=== PATIENT | female | born 1955 | race Asian ===

== ENCOUNTER 2020-06-05 05:41 | Inpatient (IN) | payer OTHER, SELFPAY ==
[~2020-06-05] VITALS: Ht 157.5 cm; Wt 74.4 kg
[2020-06-05 05:50] VITALS: BP_SYST 109
[2020-06-05] MEDS ORDERED: NACL 0.9% 1,000 ML IV ONE (06:14)
[2020-06-05 06:33] LABS: BILIRUBIN,URINE NEGATIVE (NEGATIVE); BLOOD, URINE 1+ (NEGATIVE); CLARITY/URINE CLEAR (CLEAR); COLOR,URINE YELLOW (YELLOW); GLUCOSE,URINE NEGATIVE (NEGATIVE); KETONES,URINE TRACE (NEGATIVE); LEUKOCYTE ESTERASE ,URINE NEGATIVE (NEGATIVE); NITRITE, URINE NEGATIVE (NEGATIVE); PROTEIN URINE NEGATIVE (NEGATIVE); UROBILINOGEN,URINE 0.2 (0.2-1.0)
[2020-06-05 06:54] LABS: BASOPHILS % (AUTO) 0.2 % (0.0-2.0); HEMATOCRIT 39.3 % (36-48); HEMOGLOBIN 12.4 g/dL (12.0-16.0); LYMPHOCYTES # (AUTO) 0.9 K/uL (1.0-5.5); LYMPHOCYTES % (AUTO) 16.8 % (20.5-51.5); MEAN CORPUSCULAR HEMOGLOBIN 24 pg (27-31); MEAN CORPUSCULAR HGB CONC 32 % (32-36); MEAN CORPUSCULAR VOLUME 77 fL (79.0-98.0); MONOCYTES # (AUTO) 0.5 K/uL (0.0-1.0); MONOCYTES % (AUTO) 8.8 % (1.7-9.3); NEUTROPHILS # (AUTO) 3.9 K/uL (1.8-7.7); NEUTROPHILS % (AUTO) 74.2 % (40.0-70.0); PLATELET COUNT (AUTO) 153 K/uL (130-430); RED BLOOD CELL COUNT(AUTO) 5.13 MIL/uL (4.2-6.2); RED CELL DISTRIBUTION WIDTH 15.8 % (9.0-15.0); WHITE BLOOD COUNT (AUTO) 5.3 K/uL (4.8-10.8)
[2020-06-05 06:54] LABS: BACTERIA,URINE FEW /HPF (None Seen); WBC,URINE 0-3 /HPF (0-3)
[2020-06-05 06:59] LABS: CREATININE 0.71 mg/dL (0.55-1.30); POTASSIUM 3.9 mmol/L (3.5-5.1)
[2020-06-05 07:13] LABS: TOTAL BILIRUBIN 0.3 mg/dL (0.0-1.0)
[2020-06-05 07:41] LABS: C-REACTIVE PROTEIN QUANT 18.2 mg/dL (0-0.5)
[2020-06-05 07:42] LABS: INR 1.1 (0.8-1.2)
[2020-06-05] MEDS ORDERED: MORPHINE 2 MG/ML INJ. SYRINGE IVP PRN (07:45)
[2020-06-05] MEDS ORDERED: AZITHROMYCIN 500 MG in NS 250 ML IV ONE (07:45)
[2020-06-05] MEDS ORDERED: HYDROcodone/ACETAMIN 5-325 MG TAB (NORCO/ VICODIN) PO PRN (07:45)
[2020-06-05] MEDS ORDERED: AZITHROMYCIN 250 MG TABLET PO ONE (08:00)
[2020-06-05 08:14] LABS: FIBRINOGEN 378 mg/dL (200-400)
[2020-06-05] MEDS ORDERED: ALBUTEROL SULFATE 0.083% 2.5 MG/3 ML VIAL.NEB INH PRN (08:15)
[2020-06-05] MEDS ORDERED: ALBUTEROL MDI INHALATION 8 GM INH INH PRN (08:15)
[2020-06-05] MEDS: NACL 0.9% 1,000 ML IV SCH (08:39)
[2020-06-05] MEDS: cefTRIAXone 1 GM in D5W 50 ML IV SCH (08:41)
[2020-06-05] MEDS ORDERED: AZITHROMYCIN 250 MG TABLET ONE (08:57)
[2020-06-05] MEDS ORDERED: MAGNESIUM OXIDE 400 MG TABLET PO PRN (09:00)
[2020-06-05] MEDS ORDERED: ONDANSETRON HCL 4 MG/2 ML VIAL IVP PRN (09:00)
[2020-06-05] MEDS: ASCORBIC ACID 500 MG TABLET PO SCH (10:12)
[2020-06-05] MEDS: CHOLECALCIFEROL (VITAMIN D3) 2,000 UNIT TABLET PO SCH (10:13)
[2020-06-05] MEDS: ENOXAPARIN SODIUM 40 MG/0.4 ML SYRINGE SUBCUT SCH (10:14)
[2020-06-05 10:30] VITALS: BP_SYST 117
[2020-06-05 12:00] VITALS: BP_SYST 113
[2020-06-05] MEDS: metroNIDAZOLE 500 MG TABLET PO SCH ×2 (14:00→22:00)
[2020-06-05 17:50] VITALS: BP_SYST 113
[2020-06-05 20:00] VITALS: BP_SYST 104
[2020-06-06] VITALS: BP_SYST 111
[2020-06-06] MEDS: NACL 0.9% 1,000 ML IV SCH (00:26)
[2020-06-06] MEDS: metroNIDAZOLE 500 MG TABLET PO SCH ×3 (07:02→22:01)
[2020-06-06 08:00] VITALS: BP_SYST 118
[2020-06-06] MEDS: DECADRON 4 MG TABLET PO SCH (09:00)
[2020-06-06] MEDS: AZITHROMYCIN 250 MG TABLET PO SCH (09:00)
[2020-06-06] MEDS: ASCORBIC ACID 500 MG TABLET PO SCH (09:00)
[2020-06-06] MEDS: CHOLECALCIFEROL (VITAMIN D3) 2,000 UNIT TABLET PO SCH (09:00)
[2020-06-06] MEDS: cefTRIAXone 1 GM in D5W 50 ML IV SCH (09:00)
[2020-06-06] MEDS: ENOXAPARIN SODIUM 40 MG/0.4 ML SYRINGE SUBCUT SCH (09:00)
[2020-06-06 10:31] LABS: BASOPHILS % (AUTO) 0.1 % (0.0-2.0); HEMATOCRIT 39.1 % (36-48); HEMOGLOBIN 12.4 g/dL (12.0-16.0); LYMPHOCYTES # (AUTO) 0.8 K/uL (1.0-5.5); LYMPHOCYTES % (AUTO) 13.1 % (20.5-51.5); MEAN CORPUSCULAR HEMOGLOBIN 24 pg (27-31); MEAN CORPUSCULAR HGB CONC 32 % (32-36); MEAN CORPUSCULAR VOLUME 76 fL (79.0-98.0); MONOCYTES # (AUTO) 0.5 K/uL (0.0-1.0); NEUTROPHILS # (AUTO) 4.5 K/uL (1.8-7.7); NEUTROPHILS % (AUTO) 77.8 % (40.0-70.0); PLATELET COUNT (AUTO) 158 K/uL (130-430); RED BLOOD CELL COUNT(AUTO) 5.14 MIL/uL (4.2-6.2); RED CELL DISTRIBUTION WIDTH 15.8 % (9.0-15.0); WHITE BLOOD COUNT (AUTO) 5.8 K/uL (4.8-10.8)
[2020-06-06 10:58] LABS: ALBUMIN 2.7 g/dL (3.4-4.8); CALCIUM 8.3 mg/dL (8.4-11.0); CREATININE 0.66 mg/dL (0.55-1.30); POTASSIUM 3.7 mmol/L (3.5-5.1); TOTAL BILIRUBIN 0.2 mg/dL (0.0-1.0)
[2020-06-06 11:33] LABS: C-REACTIVE PROTEIN QUANT 22.5 mg/dL (0-0.5)
[2020-06-06 12:00] VITALS: BP_SYST 109
[2020-06-06 16:00] VITALS: BP_SYST 109
[2020-06-06 20:00] VITALS: BP_SYST 107
[2020-06-06] MEDS: ACETAMINOPHEN 325 MG TABLET PO PRN (22:01)
[2020-06-07] VITALS: BP_SYST 103
[2020-06-07] MEDS: metroNIDAZOLE 500 MG TABLET PO SCH ×2 (06:02→13:38)
[2020-06-07] MEDS: NACL 0.9% 1,000 ML IV SCH ×2 (07:42→20:59)
[2020-06-07 08:45] VITALS: BP_SYST 116
[2020-06-07] MEDS: ENOXAPARIN SODIUM 40 MG/0.4 ML SYRINGE SUBCUT SCH (09:12)
[2020-06-07] MEDS: CHOLECALCIFEROL (VITAMIN D3) 2,000 UNIT TABLET PO SCH (09:12)
[2020-06-07] MEDS: ASCORBIC ACID 500 MG TABLET PO SCH (09:12)
[2020-06-07] MEDS: AZITHROMYCIN 250 MG TABLET PO SCH (09:13)
[2020-06-07] MEDS: DECADRON 4 MG TABLET PO SCH (09:13)
[2020-06-07] MEDS: cefTRIAXone 1 GM in D5W 50 ML IV SCH (09:14)
[2020-06-07] MEDS: ACETAMINOPHEN 325 MG TABLET PO PRN (09:30)
[2020-06-07 10:39] LABS: BASOPHILS % (AUTO) 0.2 % (0.0-2.0); HEMATOCRIT 38.1 % (36-48); HEMOGLOBIN 12.2 g/dL (12.0-16.0); LYMPHOCYTES # (AUTO) 0.7 K/uL (1.0-5.5); LYMPHOCYTES % (AUTO) 10.4 % (20.5-51.5); MEAN CORPUSCULAR HEMOGLOBIN 24 pg (27-31); MEAN CORPUSCULAR HGB CONC 32 % (32-36); MEAN CORPUSCULAR VOLUME 76 fL (79.0-98.0); MONOCYTES # (AUTO) 0.4 K/uL (0.0-1.0); MONOCYTES % (AUTO) 5.4 % (1.7-9.3); NEUTROPHILS # (AUTO) 5.9 K/uL (1.8-7.7); PLATELET COUNT (AUTO) 164 K/uL (130-430); RED BLOOD CELL COUNT(AUTO) 5.01 MIL/uL (4.2-6.2); RED CELL DISTRIBUTION WIDTH 15.5 % (9.0-15.0)
[2020-06-07 11:03] LABS: ALBUMIN 2.5 g/dL (3.4-4.8); CALCIUM 8.5 mg/dL (8.4-11.0); CREATININE 0.75 mg/dL (0.55-1.30); POTASSIUM 3.3 mmol/L (3.5-5.1); TOTAL BILIRUBIN 0.2 mg/dL (0.0-1.0)
[2020-06-07 11:35] VITALS: BP_SYST 105
[2020-06-07] MEDS ORDERED: PANTOPRAZOLE SODIUM 40 MG TAB PO ONE (12:00)
[2020-06-07] MEDS ORDERED: ENOXAPARIN SODIUM 80 MG/0.8 ML SYRINGE SUBCUT SCH (12:00)
[2020-06-07 16:41] VITALS: BP_SYST 108
[2020-06-07] MEDS ORDERED: IVERMECTIN 3 MG TABLET PO ONE (17:00)
[2020-06-07 20:00] VITALS: BP_SYST 110
[2020-06-07] MEDS: FAMOTIDINE PF 20 MG/2 ML VIAL IVP SCH (20:59)
[2020-06-07] MEDS: POTASSIUM CHLORIDE 20 MEQ TAB.PRT.SR PO PRN (20:59)
[2020-06-08] VITALS: BP_SYST 106
[2020-06-08] MEDS: NACL 0.9% 1,000 ML IV SCH (06:37)
[2020-06-08 07:08] LABS: BASOPHILS % (AUTO) 0.1 % (0.0-2.0); HEMATOCRIT 36.6 % (36-48); LYMPHOCYTES # (AUTO) 0.5 K/uL (1.0-5.5); LYMPHOCYTES % (AUTO) 18.6 % (20.5-51.5); MEAN CORPUSCULAR HEMOGLOBIN 25 pg (27-31); MEAN CORPUSCULAR HGB CONC 33 % (32-36); MEAN CORPUSCULAR VOLUME 75 fL (79.0-98.0); MONOCYTES # (AUTO) 0.3 K/uL (0.0-1.0); MONOCYTES % (AUTO) 12.6 % (1.7-9.3); NEUTROPHILS # (AUTO) 1.7 K/uL (1.8-7.7); NEUTROPHILS % (AUTO) 68.7 % (40.0-70.0); PLATELET COUNT (AUTO) 165 K/uL (130-430); RED BLOOD CELL COUNT(AUTO) 4.89 MIL/uL (4.2-6.2); RED CELL DISTRIBUTION WIDTH 15.4 % (9.0-15.0); WHITE BLOOD COUNT (AUTO) 2.5 K/uL (4.8-10.8)
[2020-06-08 07:55] LABS: ALBUMIN 2.3 g/dL (3.4-4.8); CALCIUM 8.4 mg/dL (8.4-11.0); CREATININE 0.81 mg/dL (0.55-1.30); POTASSIUM 3.7 mmol/L (3.5-5.1); TOTAL BILIRUBIN 0.2 mg/dL (0.0-1.0)
[2020-06-08 08:00] VITALS: BP_SYST 126
[2020-06-08] MEDS: DECADRON 4 MG TABLET PO SCH (09:00)
[2020-06-08] MEDS: FAMOTIDINE PF 20 MG/2 ML VIAL IVP SCH ×2 (09:00→22:18)
[2020-06-08] MEDS: ENOXAPARIN SODIUM 40 MG/0.4 ML SYRINGE SUBCUT SCH (09:00)
[2020-06-08] MEDS: cefTRIAXone 1 GM in D5W 50 ML IV SCH (09:00)
[2020-06-08] MEDS ORDERED: PANTOPRAZOLE SODIUM 40 MG TAB PO SCH (09:00)
[2020-06-08] MEDS: CHOLECALCIFEROL (VITAMIN D3) 2,000 UNIT TABLET PO SCH (09:00)
[2020-06-08] MEDS: ASCORBIC ACID 500 MG TABLET PO SCH (09:00)
[2020-06-08 09:32] LABS: C-REACTIVE PROTEIN QUANT 17.7 mg/dL (0-0.5)
[2020-06-08 11:37] VITALS: BP_SYST 126
[2020-06-08 12:00] VITALS: BP_SYST 108
[2020-06-08 16:09] VITALS: BP_SYST 120
[2020-06-08 20:00] VITALS: BP_SYST 107
[2020-06-08] MEDS: ACETAMINOPHEN 325 MG TABLET PO PRN (23:47)
[2020-06-09] VITALS: BP_SYST 131
[2020-06-09 08:00] VITALS: BP_SYST 106
[2020-06-09] MEDS: ENOXAPARIN SODIUM 40 MG/0.4 ML SYRINGE SUBCUT SCH (09:13)
[2020-06-09] MEDS: ASCORBIC ACID 500 MG TABLET PO SCH (09:13)
[2020-06-09] MEDS: cefTRIAXone 1 GM in D5W 50 ML IV SCH (09:13)
[2020-06-09] MEDS: CHOLECALCIFEROL (VITAMIN D3) 2,000 UNIT TABLET PO SCH (09:13)
[2020-06-09] MEDS: DECADRON 4 MG TABLET PO SCH (09:13)
[2020-06-09] MEDS: FAMOTIDINE PF 20 MG/2 ML VIAL IVP SCH ×2 (09:13→21:49)
[2020-06-09 10:06] LABS: BASOPHILS % (AUTO) 0.1 % (0.0-2.0); HEMATOCRIT 38.5 % (36-48); HEMOGLOBIN 12.5 g/dL (12.0-16.0); LYMPHOCYTES # (AUTO) 0.6 K/uL (1.0-5.5); LYMPHOCYTES % (AUTO) 8.9 % (20.5-51.5); MEAN CORPUSCULAR HEMOGLOBIN 25 pg (27-31); MEAN CORPUSCULAR HGB CONC 33 % (32-36); MEAN CORPUSCULAR VOLUME 76 fL (79.0-98.0); MONOCYTES # (AUTO) 0.5 K/uL (0.0-1.0); MONOCYTES % (AUTO) 6.7 % (1.7-9.3); NEUTROPHILS # (AUTO) 5.8 K/uL (1.8-7.7); NEUTROPHILS % (AUTO) 84.3 % (40.0-70.0); PLATELET COUNT (AUTO) 252 K/uL (130-430); RED BLOOD CELL COUNT(AUTO) 5.05 MIL/uL (4.2-6.2); RED CELL DISTRIBUTION WIDTH 15.7 % (9.0-15.0); WHITE BLOOD COUNT (AUTO) 6.9 K/uL (4.8-10.8)
[2020-06-09 10:17] LABS: ALBUMIN 2.5 g/dL (3.4-4.8); CALCIUM 8.8 mg/dL (8.4-11.0); CREATININE 0.78 mg/dL (0.55-1.30); POTASSIUM 3.2 mmol/L (3.5-5.1); TOTAL BILIRUBIN 0.2 mg/dL (0.0-1.0)
[2020-06-09] MEDS: POTASSIUM CHLORIDE 20 MEQ TAB.PRT.SR PO PRN (13:00)
[2020-06-09 13:15] VITALS: BP_SYST 112
[2020-06-09] MEDS ORDERED: KCL 40 mEq in 100 mL (PREMIX) 100 ML IV ONE (14:00)
[2020-06-09 16:01] VITALS: BP_SYST 107
[2020-06-09 20:00] VITALS: BP_SYST 109
[2020-06-09] MEDS: LOPERAMIDE HCL 2 MG CAPSULE PO PRN (21:50)
[2020-06-09] MEDS: ACETAMINOPHEN 325 MG TABLET PO PRN (22:36)
[2020-06-10 00:05] VITALS: BP_SYST 133
[2020-06-10] MEDS: LOPERAMIDE HCL 2 MG CAPSULE PO PRN (06:45)
[2020-06-10 08:00] VITALS: BP_SYST 105
[2020-06-10] MEDS ORDERED: DEXA6TAB5 PO (08:23)
[2020-06-10] MEDS ORDERED: APIX2.5T PO (08:23)
[2020-06-10] MEDS ORDERED: ZINC220T4 PO (08:23)
[2020-06-10] MEDS ORDERED: VITD2000 PO (08:23)
[2020-06-10] MEDS ORDERED: ASCO500C18 PO (08:23)
[2020-06-10] MEDS ORDERED: AZIT-62 PO (08:23)
[2020-06-10] MEDS ORDERED: AZITHROMYCIN 250 MG TABLET PO ONE (08:30)
[2020-06-10 08:55] LABS: EOSINOPHILS % (AUTO) 0.1 % (0.0-4.0); HEMATOCRIT 39.1 % (36-48); HEMOGLOBIN 12.6 g/dL (12.0-16.0); LYMPHOCYTES # (AUTO) 1.1 K/uL (1.0-5.5); MEAN CORPUSCULAR HEMOGLOBIN 24 pg (27-31); MEAN CORPUSCULAR HGB CONC 32 % (32-36); MEAN CORPUSCULAR VOLUME 76 fL (79.0-98.0); MONOCYTES % (AUTO) 8.9 % (1.7-9.3); PLATELET COUNT (AUTO) 261 K/uL (130-430); RED BLOOD CELL COUNT(AUTO) 5.17 MIL/uL (4.2-6.2); RED CELL DISTRIBUTION WIDTH 15.5 % (9.0-15.0); WHITE BLOOD COUNT (AUTO) 11.1 K/uL (4.8-10.8)
[2020-06-10] MEDS: CHOLECALCIFEROL (VITAMIN D3) 2,000 UNIT TABLET PO SCH (09:15)
[2020-06-10] MEDS: cefTRIAXone 1 GM in D5W 50 ML IV SCH (09:15)
[2020-06-10] MEDS: ASCORBIC ACID 500 MG TABLET PO SCH (09:15)
[2020-06-10] MEDS: FAMOTIDINE PF 20 MG/2 ML VIAL IVP SCH (09:15)
[2020-06-10] MEDS: DECADRON 4 MG TABLET PO SCH (09:15)
[2020-06-10] MEDS: ENOXAPARIN SODIUM 40 MG/0.4 ML SYRINGE SUBCUT SCH (09:16)
[2020-06-10 09:27] LABS: ALBUMIN 2.7 g/dL (3.4-4.8); CALCIUM 9.1 mg/dL (8.4-11.0); CREATININE 0.84 mg/dL (0.55-1.30); POTASSIUM 3.5 mmol/L (3.5-5.1); TOTAL BILIRUBIN 0.3 mg/dL (0.0-1.0)
[2020-06-10] MEDS: POTASSIUM CHLORIDE 20 MEQ TAB.PRT.SR PO PRN (09:54)
[2020-06-10 11:37] VITALS: BP_SYST 115
== END 2020-06-10 12:00 | disposition home or self-care (01) | DRG 871 ==
LOC: SED 05:41 → STU 07:37
PROVIDERS: ADMIT Hospitalist; ATTEND Hospitalist
DX: A41.89 Other specified sepsis (principal); J96.01 Acute respiratory failure with hypoxia; E43 Unspecified severe protein-calorie malnutrition; J12.89 Other viral pneumonia; U07.1 COVID-19; E87.1 Hypo-osmolality and hyponatremia; N39.0 Urinary tract infection, site not specified; E86.1 Hypovolemia; R19.7 Diarrhea, unspecified; E87.6 Hypokalemia; E66.9 Obesity, unspecified; A08.4 Viral intestinal infection, unspecified; Z68.30 Body mass index [BMI] 30.0-30.9, adult
CPT/HCPCS: 36415; 36600; 71045; 80053; 81000-TC; 82550-TC; 82728; 82803-TC; 83605; 83615-TC; 83735-TC; 83880; 84100-TC; 84484; 85025; 85379; 85384-TC; 85610-TC; 85730-TC; 86140; 86886; 86900; 86901; 87040-TC; 87086; 87230-TC; 94760; 96360; 96361; 99285; G0378; J0456; J0696; J1650; J3490; J7030; J7050; J7060; J8540; Q0144; U0003-CS